=== PATIENT | male | born 1985 | race Caucasian/White ===

== ENCOUNTER 2021-02-21 14:01 | Emergency (ER) | payer OTHER ==
[2021-02-21] MEDS ORDERED: HYDROCODON-ACE1 EAC4 PO (15:37)
[2021-02-21] MEDS ORDERED: NAPROSYN500 MG PO (15:43)
== END 2021-02-21 16:05 | disposition home or self-care (01) ==
LOC: ER1 14:01
DX: S22.42XA Multiple fractures of ribs, left side, initial encounter for closed fracture (principal); F17.200 Nicotine dependence, unspecified, uncomplicated; W19.XXXA Unspecified fall, initial encounter; Y92.009 Unspecified place in unspecified non-institutional (private) residence as the place of occurrence of the external cause
CPT/HCPCS: 71111; 99283